=== PATIENT | male | born 1975 | race American Indian/Alaskan Native ===

== ENCOUNTER 2016-08-18 22:06 | Emergency (ER) | payer SELFPAY ==
[2016-08-18 22:55] LABS: Hematocrit 46.5 % (35.5-45.6); Hemoglobin 15.6 gm/dl (11.8-15.2); Mean Corpuscular HGB Conc 34 % (32-34); Mean Corpuscular Hemoglobin 29 pg (28-32); Mean Corpuscular Volume 88 fl (84-94); Platelet Count 235 K/mm3 (140-440); Red Cell Distribution Width 13.8 % (13.2-15.2); White Blood Count 11.2 K/mm3 (4.5-11.0)
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
[2016-08-18 23:18] LABS: Anion Gap 19 mmol/L; Blood Urea Nitrogen 12 mg/dL (9-20); Calcium 9.4 mg/dL (8.4-10.2); Carbon Dioxide 24 mmol/L (22-30); Chloride 99.9 mmol/L (98-107); Creatine Kinase 1278 units/L (55-170); Glucose 103 mg/dL (75-100); Potassium 3.9 mmol/L (3.6-5.0); Sodium 139 mmol/L (137-145)
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
[2016-08-19] MEDS ORDERED: PERCOCET 5/325 PO ONE (01:51)
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
[2016-08-19 03:11] VITALS: BP 125/74
== END 2016-08-19 03:09 | disposition home or self-care (01) ==
LOC: ED 22:06
DX: R07.81 Pleurodynia (principal); V29.9XXA Motorcycle rider (driver) (passenger) injured in unspecified traffic accident, initial encounter; Y93.89 Activity, other specified; Y99.8 Other external cause status; Y92.89 Other specified places as the place of occurrence of the external cause
CPT/HCPCS: 36415; 70450; 71250; 80048; 82550; 84484; 85027; 93005; 93010

== ENCOUNTER 2020-08-19 10:33 | Inpatient (IN) | payer OTHER, SELFPAY ==
--- NOTE | 2020-08-19 12:44 | Event Note ---
ED Screening Note Date of service: 08/19/20 Time: 12:44 ED Screening Note: 44-year-old -[place] male no past medical history presents to the emergency room for 1week history of sore throat with chest pain from swallowing. Patient states his nausea had vomited 1 time last night. Patient reports he is taking nothing for his discomfort. Denies any fever no chills. Patient reports he tested positive for Covid on August 11, 2020 from [facility]. Patient reports at that time he had chills and diarrhea. Patient reports he was seen at [facility] on 08/15/2020 for the same complaint. Patient reports he gave the medication he is unaware the name but did not work. This initial assessment/diagnostic orders/clinical plan/treatment(s) is/are subject to change based on patients health status, clinical progression and re- assessment by fellow clinical providers in the ED. Further treatment and workup at subsequent clinical providers discretion. Patient/guardian urged not to elope from the ED as their condition may be serious if not clinically assessed and managed. Initial orders include:
--- NOTE | 2020-08-19 13:15 | XRay Report ---
CHEST 2 VIEWS INDICATION: sob,cough and rales. COMPARISON: None. FINDINGS: Support devices: None. Heart: Within normal limits. Lungs/Pleura: Patchy opacity at the mid/lower zones. No significant pleural effusion. IMPRESSION: Bilateral mid/lower zone pneumonia. Signer Name: Luis F Vicente MD Signed: 08/19/2020 1:10 PM Workstation Name: [id number]
[2020-08-19 13:32] LABS: Hematocrit 48.8 % (35.5-45.6); Hemoglobin 16.6 gm/dl (11.8-15.2); Mean Corpuscular HGB Conc 34 % (32-34); Mean Corpuscular Volume 93 fl (84-94); Platelet Count 380 K/mm3 (140-440); Red Blood Count 5.28 M/mm3 (3.65-5.03); Red Cell Distribution Width 13.6 % (13.2-15.2)
[2020-08-19 13:50] LABS: Alanine Aminotransferase 24 units/L (7-56); Albumin 3.1 g/dL (3.9-5); BUN/Creatinine Ratio 17; Blood Urea Nitrogen 19 mg/dL (9-20); Calcium 8.8 mg/dL (8.4-10.2); Hemolysis Index 16
[2020-08-19 14:13] LABS: Band Neutrophils # (Manual) 0.1 K/mm3; Large Platelets Few; Platelet Estimate Consistent w Auto; RBC Morphology Normal; Total Cells Counted 100
[2020-08-19] MEDS ORDERED: AZITHROMYCIN/NS 500 MG/250 ML 500 MG/250 ML BAG IV ONE (19:48)
[2020-08-19] MEDS ORDERED: SODIUM CHLORIDE 0.9% 1000 ML 1,000 ML IV ONE (19:48)
[2020-08-19] MEDS ORDERED: KETOROLAC 30 MG/1 ML INJ IV ONE (19:49)
[2020-08-19] MEDS ORDERED: dexAMETHasone 20 MG/5 ML VIAL IV ONE (19:49)
[2020-08-19 20:24] LABS: Amphetamine Screen,Urine Negative; Benzodiazepines Screen,Urine Negative; Cannabinoid Screen,Urine Negative; Cocaine Screen,Urine Negative; Methadone Screen,Urine Negative; Opiate Screen,Urine Negative
--- NOTE | 2020-08-19 21:39 | Emergency Department Report ---
<SAMSON PANDA - Last Filed: 08/19/20 21:34> ED General Adult HPI - General Chief complaint: Dyspnea/Respdistress Stated complaint: CHEST/BACK PAIN/COVID POS Time Seen by Provider: 08/19/20 19:47 Source: patient Mode of arrival: Ambulatory Limitations: No Limitations - History of Present Illness Initial comments: 44-year-old -[place] male no past medical history presents to the emergency room for 1week history of sore throat with chest pain from swallowing. Patient states his nausea had vomited 1 time last night. Patient reports he is taking nothing for his discomfort. Denies any fever no chills. Patient reports he tested positive for Covid on August 11, 2020 from [facility]. Patient reports at that time he had chills and diarrhea. Patient reports he was seen at [facility] on 08/15/2020 for the same complaint. Patient reports he gave the medication he is unaware the name but did not work. Severity scale (0 -10): 4 - Related Data Previous Rx's Medication Instructions Recorded Last Taken Type Ciprofloxacin HCl [Cipro] 500 mg PO Q12H #28 tab 07/22/13 Unknown Rx metroNIDAZOLE [Flagyl] 500 mg PO Q8HR #42 tablet 07/22/13 Unknown Rx oxyCODONE /ACETAMINOPHEN [Percocet 1 tab PO Q6H PRN #15 tablet 08/19/16 Unknown Rx 5/325 mg] Albuterol Sulfate [Proventil Hfa] 6.7 gm IH QID PRN #1 hfa.aer.ad 08/19/20 Unknown Rx Azithromycin 500 mg PO QDAY #5 tablet 08/19/20 Unknown Rx Ibuprofen [Motrin 600 MG tab] 600 mg PO Q8H PRN #20 tablet 08/19/20 Unknown Rx Prednisone [predniSONE 5 mg (6-Day 5 mg PO .TAPER #1 tab.ds.pk 08/19/20 Unknown Rx Pack, 21 Tabs)] Allergies Allergy/AdvReac Type Severity Reaction Status Date / Time No Known Allergies Allergy Verified 07/19/13 05:43 ED Past Medical Hx - Past Medical History Hx Hypertension: No Hx Heart Attack/AMI: No Hx Congestive Heart Failure: No Hx Diabetes: No Hx Deep Vein Thrombosis: No Hx Pulmonary Embolism: No Hx Liver Disease: No Hx Renal Disease: No Hx Sickle Cell Disease: No Hx Arthritis: No Hx Seizures: No Hx Kidney Stones: No Hx Asthma: No Hx COPD: No Hx Tuberculosis: No Hx Dementia: No Hx HIV: No - Surgical History Hx Coronary Stent: No Hx Pacemaker: No Hx Internal Defibrillator: No Hx Cholecystectomy: No Hx Appendectomy: No Hx Breast Surgery: No - Social History Smoking Status: Unknown if ever smoked - Medications Home Medications: Home Medications Medication Instructions Recorded Confirmed Last Taken Type Ciprofloxacin HCl [Cipro] 500 mg PO Q12H #28 tab 07/22/13 Unknown Rx metroNIDAZOLE [Flagyl] 500 mg PO Q8HR #42 tablet 07/22/13 Unknown Rx oxyCODONE /ACETAMINOPHEN [Percocet 1 tab PO Q6H PRN #15 tablet 08/19/16 Unknown Rx 5/325 mg] Albuterol Sulfate [Proventil Hfa] 6.7 gm IH QID PRN #1 hfa.aer.ad 08/19/20 Unknown Rx Azithromycin 500 mg PO QDAY #5 tablet 08/19/20 Unknown Rx Ibuprofen [Motrin 600 MG tab] 600 mg PO Q8H PRN #20 tablet 08/19/20 Unknown Rx Prednisone [predniSONE 5 mg (6-Day 5 mg PO .TAPER #1 tab.ds.pk 08/19/20 Unknown Rx Pack, 21 Tabs)] ED Physical Exam - General Limitations: No Limitations ED Medical Decision Making - Lab Data Result diagrams: 08/19/20 12:52 08/19/20 12:52 - Radiology Data Radiology results: report reviewed [facility] [address] [place] [address] XRay Report Signed Patient: LINDA DIMAS MR#: Maria Guadalupe [id number] : 1975 Acct:[id number] Age/Sex: 44 / M ADM Date: 08/19/20 Loc: ED Attending Dr: Ordering Physician: ZACHARY POPE Date of Service: 08/19/20 Procedure(s): XR chest routine 2V Accession Number(s): [id number] cc: ZACHARY POPE Fluoro Time In Minutes: CHEST 2 VIEWS INDICATION: sob,cough and rales. COMPARISON: None. FINDINGS: Support devices: None. Heart: Within normal limits. Lungs/Pleura: Patchy opacity at the mid/lower zones. No significant pleural effusion. IMPRESSION: Bilateral mid/lower zone pneumonia. Signer Name: Luis F Vicente MD Signed: 08/19/2020 1:10 PM Workstation Name: [id number] Transcribed By: ALISSON Dictated By: Luis F Vicente MD Electronically Authenticated By: Luis F Vicente MD Signed Date/Time: 08/19/201309 DD/ 09 TD/TT: - Medical Decision Making 44-year-old -[place] male no past medical history presents to the emergency room for 1week history of sore throat with chest pain from swallowing. Patient states his nausea had vomited 1 time last night. Patient reports he is taking nothing for his discomfort. Denies any fever no chills. Patient reports he tested positive for Covid on August 11, [facility]. Patient reports at that time he had chills and diarrhea. Patient reports he was seen at [facility] on 08/15/2020 for the same complaint. Patient reports he gave the medication he is unaware the name but did not work. CBC CMP, IV, chest x-ray, azithromycin IV 500 mg, dexamethasone 10 mg IV and Toradol 15 mg IV. Patient be discharged with an inhaler, prednisone pack a azithromycin and to follow-up with a primary care provider. Did add a CTA for chest as patient is still complaining of chest pain. Chart has been signed over to Dr. Marco Desai. ED Disposition Clinical Impression: Pneumonia due to 2019 novel coronavirus, Shortness of breath with exposure to COVID-19 virus, Pulmonary embolism Disposition: -01 TO HOME OR SELFCARE Is pt being admited?: No Does the pt Need Aspirin: No Condition: Stable Instructions: Bacterial Pneumonia (ED) Prescriptions: Azithromycin 500 mg PO QDAY #5 tablet Ibuprofen [Motrin 600 MG tab] 600 mg PO Q8H PRN #20 tablet PRN Reason: Pain Prednisone [predniSONE 5 mg (6-Day Pack, 21 Tabs)] 5 mg PO .TAPER #1 tab.ds.pk Albuterol Sulfate [Proventil Hfa] 6.7 gm IH QID PRN #1 hfa.aer.ad PRN Reason: Shortness Of Breath <MARCO DESAI - Last Filed: 08/20/20 00:12> ED Review of Systems ROS: Stated complaint: CHEST/BACK PAIN/COVID POS Other details as noted in HPI ED Course Vital Signs 08/19/20 08/19/20 10:59 19:17 Temperature 96.5 F L 98.6 F Pulse Rate 113 H Respiratory 24 105 H Rate Blood Pressure 125/74 121/73 [Right] O2 Sat by Pulse 95 97 Oximetry ED Medical Decision Making - Lab Data Result diagrams: 08/19/20 12:52 08/19/20 12:52 Lab Results 08/19/20 08/19/20 08/19/20 Range/Units 12:52 12:52 12:56 WBC 10.7 (4.5-11.0) K/mm3 RBC 5.28 H (3.65-5.03) M/mm3 Hgb 16.6 H (11.8-15.2) gm/dl Hct 48.8 H (35.5-45.6) % MCV 93 (84-94) fl MCH 32 (28-32) pg MCHC 34 (32-34) % RDW 13.6 (13.2-15.2) % Plt Count 380 (140-440) K/mm3 Add Manual Diff Complete Total Counted 100 Seg Neuts % (Manual) 87.0 H (40.0-70.0) % Band Neutrophils % 1.0 % Lymphocytes % (Manual) 5.0 L (13.4-35.0) % Monocytes % (Manual) 7.0 (0.0-7.3) % Nucleated RBC % Not Reportable Seg Neutrophils # Man 9.3 H (1.8-7.7) K/mm3 Band Neutrophils # 0.1 K/mm3 Lymphocytes # (Manual) 0.5 L (1.2-5.4) K/mm3 Abs React Lymphs (Man) 0.0 K/mm3 Monocytes # (Manual) 0.7 (0.0-0.8) K/mm3 Eosinophils # (Manual) 0.0 (0.0-0.4) K/mm3 Basophils # (Manual) 0.0 (0.0-0.1) K/mm3 Metamyelocytes # 0.0 K/mm3 Myelocytes # 0.0 K/mm3 Promyelocytes # 0.0 K/mm3 Blast Cells # 0.0 K/mm3 WBC Morphology Not Reportable Hypersegmented Neuts Not Reportable Hyposegmented Neuts Not Reportable Hypogranular Neuts Not Reportable Smudge Cells Not Reportable Toxic Granulation Not Reportable Toxic Vacuolation Not Reportable Dohle Bodies Not Reportable Pelger-Huet Anomaly Not Reportable Kiera Rods Not Reportable Platelet Estimate Consistent w auto Clumped Platelets Not Reportable Plt Clumps, EDTA Not Reportable Large Platelets Few Giant Platelets Not Reportable Platelet Satelliting Not Reportable Plt Morphology Comment Not Reportable RBC Morphology Normal Dimorphic RBCs Not Reportable Polychromasia Not Reportable Hypochromasia Not Reportable Poikilocytosis Not Reportable Anisocytosis Not Reportable Microcytosis Not Reportable Macrocytosis Not Reportable Spherocytes Not Reportable Pappenheimer Bodies Not Reportable Sickle Cells Not Reportable Target Cells Not Reportable Tear Drop Cells Not Reportable Ovalocytes Not Reportable Helmet Cells Not Reportable [place] Bodies Not Reportable Donald Rings Not Reportable Meredith Cells Not Reportable Bite Cells Not Reportable Crenated Cell Not Reportable Elliptocytes Not Reportable Acanthocytes (Spur) Not Reportable Rouleaux Not Reportable Hemoglobin C Crystals Not Reportable Schistocytes Not Reportable Malaria parasites Not Reportable Kareem Bodies Not Reportable Hem Pathologist Commnt No Sodium 135 L (137-145) mmol/L Potassium 3.6 (3.6-5.0) mmol/L Chloride 96.8 L (98-107) mmol/L Carbon Dioxide 21 L (22-30) mmol/L Anion Gap 21 mmol/L BUN 19 (9-20) mg/dL Creatinine 1.1 (0.8-1.3) mg/dL Estimated GFR > 60 ml/min BUN/Creatinine Ratio 17 % Glucose 197 H (75-100) mg/dL Calcium 8.8 (8.4-10.2) mg/dL Total Bilirubin 0.60 (0.1-1.2) mg/dL AST 21 (5-40) units/L ALT 24 (7-56) units/L Alkaline Phosphatase 52 (35-129) units/L Troponin T < 0.010 (0.00-0.029) ng/mL Total Protein 7.7 (6.3-8.2) g/dL Albumin 3.1 L (3.9-5) g/dL Albumin/Globulin Ratio 0.7 % Lipase 52 (13-60) units/L Urine Opiates Screen Urine Methadone Screen Ur Barbiturates Screen Ur Phencyclidine Scrn Ur Amphetamines Screen U Benzodiazepines Scrn Urine Cocaine Screen U Marijuana (THC) Screen Drugs of Abuse Note 08/19/20 Range/Units Unknown WBC (4.5-11.0) K/mm3 RBC (3.65-5.03) M/mm3 Hgb (11.8-15.2) gm/dl Hct (35.5-45.6) % MCV (84-94) fl MCH (28-32) pg MCHC (32-34) % RDW (13.2-15.2) % Plt Count (140-440) K/mm3 Add Manual Diff Total Counted Seg Neuts % (Manual) (40.0-70.0) % Band Neutrophils % % Lymphocytes % (Manual) (13.4-35.0) % Monocytes % (Manual) (0.0-7.3) % Nucleated RBC % Seg Neutrophils # Man (1.8-7.7) K/mm3 Band Neutrophils # K/mm3 Lymphocytes # (Manual) (1.2-5.4) K/mm3 Abs React Lymphs (Man) K/mm3 Monocytes # (Manual) (0.0-0.8) K/mm3 Eosinophils # (Manual) (0.0-0.4) K/mm3 Basophils # (Manual) (0.0-0.1) K/mm3 Metamyelocytes # K/mm3 Myelocytes # K/mm3 Promyelocytes # K/mm3 Blast Cells # K/mm3 WBC Morphology Hypersegmented Neuts Hyposegmented Neuts Hypogranular Neuts Smudge Cells Toxic Granulation Toxic Vacuolation Dohle Bodies Pelger-Huet Anomaly Kiera Rods Platelet Estimate Clumped Platelets Plt Clumps, EDTA Large Platelets Giant Platelets Platelet Satelliting Plt Morphology Comment RBC Morphology Dimorphic RBCs Polychromasia Hypochromasia Poikilocytosis Anisocytosis Microcytosis Macrocytosis Spherocytes Pappenheimer Bodies Sickle Cells Target Cells Tear Drop Cells Ovalocytes Helmet Cells [place] Bodies Donald Rings Meredith Cells Bite Cells Crenated Cell Elliptocytes Acanthocytes (Spur) Rouleaux Hemoglobin C Crystals Schistocytes Malaria parasites Kareem Bodies Hem Pathologist Commnt Sodium (137-145) mmol/L Potassium (3.6-5.0) mmol/L Chloride (98-107) mmol/L Carbon Dioxide (22-30) mmol/L Anion Gap mmol/L BUN (9-20) mg/dL Creatinine (0.8-1.3) mg/dL Estimated GFR ml/min BUN/Creatinine Ratio % Glucose (75-100) mg/dL Calcium (8.4-10.2) mg/dL Total Bilirubin (0.1-1.2) mg/dL AST (5-40) units/L ALT (7-56) units/L Alkaline Phosphatase (35-129) units/L Troponin T (0.00-0.029) ng/mL Total Protein (6.3-8.2) g/dL Albumin (3.9-5) g/dL Albumin/Globulin Ratio % Lipase (13-60) units/L Urine Opiates Screen Negative Urine Methadone Screen Negative Ur Barbiturates Screen Negative Ur Phencyclidine Scrn Negative Ur Amphetamines Screen Negative U Benzodiazepines Scrn Negative Urine Cocaine Screen Negative U Marijuana (THC) Screen Negative Drugs of Abuse Note Disclamer - EKG Data -: EKG Interpreted by Sc - EKG Data 08/20/20 00:11 EKG shows sinus tachycardia with a rate of 106. [place] is normal intervals are normal. No ST segment elevations or depressions. Time of interpretation 1307 - Radiology Data Study Comments [facility] [address] [id number] Cat Scan Report Signed Patient: LINDA DIMAS MR#: [id number] : 1975 Acct:[id number] Age/Sex: 44 / M ADM Date: 08/19/20 Loc: ED Attending Dr: Ordering Physician: ZACHARY POPE Date of Service: 08/19/20 Procedure(s): CT angio chest Accession Number(s): [id number] cc: ZACHARY POPE CTA CHEST WITH CONTRAST INDICATION / CLINICAL INFORMATION: Chest pain Covid tachycardic. TECHNIQUE: Axial CT images were obtained through the chest after injection of IV contrast. 3 plane MIP and/or 3D reconstructions were produced. All CT scans at this location are performed using CT dose reduction for ALARA by means of automated exposure control. COMPARISON: None available. FINDINGS: PULMONARY ARTERIES: Moderate embolus left lower lobe. THORACIC AORTA: No significant abnormality. HEART: No significant abnormality. CORONARY ARTERY CALCIFICATION: None. MEDIASTINUM / ADRIEN: No significant abnormality. PLEURA: No pleural effusion. No pneumothorax. LUNGS: Patchy infiltrates greatest at the mid/lower zones peripherally. ADDITIONAL FINDINGS: None. UPPER ABDOMEN: No acute findings. SKELETAL STRUCTURES: No significant osseous abnormality. IMPRESSION: 1. Moderate left lower lobe pulmonary embolus. 2. Bilateral pneumonia typical of Covid 19 infection. CRITICAL RESULT: Time of Discovery: 10:22 PM Time of Communication: 10:29 PM Licensed Practitioner Receiving Report: Dr. Desai Read Back Performed: Yes. Signer Name: Luis F Vicente MD Signed: 08/19/2020 11:30 PM Workstation Name: [id number] - Medical Decision Making CT of the chest does confirm that the patient has bilateral infiltrates consistent with COVID-19. Incidental finding of a left lower lobe moderate size pulmonary embolus. Patient started on heparin bolus and drip. Blood cultures sent and inflammatory markers for COVID-19 was sent as well. Patient given Rocephin and azithromycin. Patient given 10 of Decadron and will be admitted to the hospitalist service. Critical Care Time: Yes (30) Critical care attestation.: If time is entered above; I have spent that time in minutes in the direct care of this critically ill patient, excluding procedure time. ED Disposition Is pt being admited?: Yes Does the pt Need Aspirin: No Time of Disposition: 00:12
[2020-08-19] MEDS ORDERED: FAMOTIDINE 20 MG/2 ML INJ IV ONE (21:48)
[2020-08-19] MEDS ORDERED: HYOSCYAMINE SUBL 0.125 MG TAB SL ONE (21:48)
--- NOTE | 2020-08-19 23:35 | Cat Scan Report ---
CTA CHEST WITH CONTRAST INDICATION / CLINICAL INFORMATION: Chest pain Covid tachycardic. TECHNIQUE: Axial CT images were obtained through the chest after injection of IV contrast. 3 plane NC P and/or 3D reconstructions were produced. All CT scans at this location are performed using CT dose reduction for ALARA by means of automated exposure control. COMPARISON: None available. FINDINGS: PULMONARY ARTERIES: Moderate embolus left lower lobe. THORACIC AORTA: No significant abnormality. HEART: No significant abnormality. CORONARY ARTERY CALCIFICATION: None. MEDIASTINUM / ADRIEN: No significant abnormality. PLEURA: No pleural effusion. No pneumothorax. LUNGS: Patchy infiltrates greatest at the mid/lower zones peripherally. ADDITIONAL FINDINGS: None. UPPER ABDOMEN: No acute findings. SKELETAL STRUCTURES: No significant osseous abnormality. IMPRESSION: 1. Moderate left lower lobe pulmonary embolus. 2. Bilateral pneumonia typical of Covid 19 infection. CRITICAL RESULT: Time of Discovery: 10:22 PM Time of Communication: 10:29 PM Licensed Practitioner Receiving Report: Dr. Desai Read Back Performed: Yes. Signer Name: Luis F Vicente MD Signed: 08/19/2020 11:30 PM Workstation Name: [id number]
[2020-08-19] MEDS ORDERED: HEPARIN 10,000 UNITS/10 ML VIAL IV PRN (23:36)
[2020-08-19] MEDS ORDERED: cefTRIAXone/NS 2 GM/100 ML 2 GM/100 ML BAG IV ONE (23:36)
[2020-08-19] MEDS ORDERED: HEPARIN 10,000 UNITS/10 ML VIAL IV ONE (23:36)
[2020-08-20] MEDS ORDERED: ACETAMINOPHEN 325 MG TAB PO PRN (00:27)
[2020-08-20] MEDS ORDERED: MAGNESIUM HYDROXIDE (MOM) ORAL LIQD UDC PO PRN (00:27)
[2020-08-20] MEDS ORDERED: ONDANSETRON 4 MG/2 ML INJ IV PRN (00:27)
--- NOTE | 2020-08-20 00:38 | History and Physical Report ---
History of Present Illness Date of examination: 08/20/20 Date of admission: 08/20/2020 Chief complaint: Sorethroat Chest Pain History of present illness: 44-year-old -Stateless male presents to the emergency room today complaining of chest pain and sore throat. Patient has also had nausea and vomiting overnight. He indicates that he tested positive for COVID-19 on August 11, 2020 during which she had occasional chills and diarrhea. Chills and diarrhea since resolved. He was seen at [facility] on August 15, 2020 with same complaints and given some medications. He has not noticed any significant improvement. He has been having progressive shortness of breath. Work-up in the emergency room today reveals bilateral infiltrate on chest x-ray. CT angiogram of the chest reveals moderate left lower lobe pulmonary embolus and bilateral pneumonia typical of COVID-19 infection. Patient has been started on empiric IV antibiotics and also placed on heparin drip. Patient currently admitted with COVID-19 pneumonia and pulmonary embolism. Past History Past Medical History: No medical history Past Surgical History: No surgical history Social history: no significant social history Family history: no significant family history Medications and Allergies Allergies Allergy/AdvReac Type Severity Reaction Status Date / Time No Known Allergies Allergy Verified 07/19/13 05:43 Home Medications Medication Instructions Recorded Confirmed Last Taken Type Ciprofloxacin HCl [Cipro] 500 mg PO Q12H #28 tab 07/22/13 Unknown Rx metroNIDAZOLE [Flagyl] 500 mg PO Q8HR #42 tablet 07/22/13 Unknown Rx oxyCODONE /ACETAMINOPHEN [Percocet 1 tab PO Q6H PRN #15 tablet 08/19/16 Unknown Rx 5/325 mg] Albuterol Sulfate [Proventil Hfa] 6.7 gm IH QID PRN #1 hfa.aer.ad 08/19/20 Unknown Rx Azithromycin 500 mg PO QDAY #5 tablet 08/19/20 Unknown Rx Ibuprofen [Motrin 600 MG tab] 600 mg PO Q8H PRN #20 tablet 08/19/20 Unknown Rx Prednisone [predniSONE 5 mg (6-Day 5 mg PO .TAPER #1 tab.ds.pk 08/19/20 Unknown Rx Pack, 21 Tabs)] Active Meds: Active Medications Acetaminophen (Acetaminophen 325 Mg Tab) 650 mg PO Q4H PRN PRN Reason: Pain MILD(1-3)/Fever >100.5/MAGANA Enoxaparin Sodium (Enoxaparin 40 Mg/0.4 Ml Inj) 40 mg SUB-Q QDAY@2200 GLENN; Protocol Heparin Sodium (Porcine) (Heparin 10,000 Units/10 Ml Vial) 3,300 unit 40 unit/kg (3300 unit) IV Q6H PRN PRN Reason: Anti-Xa Assay < 0.1 units/ml Ceftriaxone Sodium (Rocephin/Ns 2 Gm/100 Ml) 2 gm in 100 mls @ 200 mls/hr IV Q24H GLENN; Protocol Azithromycin (Zithromax/Ns) 500 mg in 250 mls @ 250 mls/hr IV Q24H GLENN; Protocol Magnesium Hydroxide (Magnesium Hydroxide (Mom) Oral Liqd Udc) 30 ml PO Q4H PRN PRN Reason: Constipation Morphine Sulfate (Morphine 2 Mg/1 Ml Inj) 2 mg IV Q4H PRN PRN Reason: Pain, Moderate (4-6) Ondansetron HCl (Ondansetron 4 Mg/2 Ml Inj) 4 mg IV Q8H PRN PRN Reason: Nausea And Vomiting Sodium Chloride (Sodium Chloride 0.9% 10 Ml Flush Syringe) 10 ml IV BID GLENN Sodium Chloride (Sodium Chloride 0.9% 10 Ml Flush Syringe) 10 ml IV PRN PRN PRN Reason: LINE FLUSH Review of Systems Constitutional: no fever, no chills Ears, nose, mouth and throat: sore throat, no nasal congestion Cardiovascular: chest pain, no palpitations Respiratory: shortness of breath, no cough Gastrointestinal: nausea, vomiting, diarrhea, no abdominal pain Genitourinary Male: no dysuria, no hematuria, no flank pain, no nocturia Musculoskeletal: no neck pain, no low back pain Integumentary: no rash, no pruritis Neurological: no headaches, no confusion Psychiatric: no anxiety, no depression Endocrine: no polyphagia, no polydipsia, no polyuria, no nocturia Exam - Constitutional Vitals: Temp Pulse Resp BP Pulse Ox 98.6 F 113 H 105 H 121/73 97 08/19/20 19:17 08/19/20 10:59 08/19/20 19:17 08/19/20 19:17 08/19/20 19:17 General appearance: Present: no acute distress, well-nourished - EENT Eyes: Present: PERRL, EOM intact. Absent: scleral icterus ENT: hearing intact, clear oral mucosa, dentition normal - Neck Neck: Present: supple, normal ROM - Respiratory Respiratory effort: normal Respiratory: bilateral: diminished - Cardiovascular Rhythm: regular Heart Sounds: Present: S1 & S2, gallop, rub, click. Absent: systolic murmur, diastolic murmur - Extremities Extremities: no ischemia, pulses intact, pulses symmetrical, No edema, normal temperature, normal color, Full ROM Peripheral Pulses: within normal limits - Abdominal General gastrointestinal: Present: soft, non-tender, non-distended, normal bowel sounds. Absent: mass - Integumentary Integumentary: Present: clear, warm, dry. Absent: rash - Musculoskeletal Musculoskeletal: strength equal bilaterally - Psychiatric Psychiatric: appropriate mood/affect, intact judgment & insight, memory intact, cooperative - Neurologic Neurologic: CNII-XII intact, no focal deficits, moves all extremities HEART Score - HEART Score Troponin: Troponin T < 0.010 ng/mL (0.00-0.029) 08/19/20 12:56 Results - Labs CBC & Chem 7: 08/19/20 12:52 08/20/20 00:10 Labs: Abnormal lab results 08/19/20 08/19/20 Range/Units 12:52 12:52 RBC 5.28 H (3.65-5.03) M/mm3 Hgb 16.6 H (11.8-15.2) gm/dl Hct 48.8 H (35.5-45.6) % Seg Neuts % (Manual) 87.0 H (40.0-70.0) % Lymphocytes % (Manual) 5.0 L (13.4-35.0) % Seg Neutrophils # Man 9.3 H (1.8-7.7) K/mm3 Lymphocytes # (Manual) 0.5 L (1.2-5.4) K/mm3 Sodium 135 L (137-145) mmol/L Chloride 96.8 L (98-107) mmol/L Carbon Dioxide 21 L (22-30) mmol/L Glucose 197 H (75-100) mg/dL Albumin 3.1 L (3.9-5) g/dL Assessment and Plan - Patient Problems (1) Pneumonia due to 2019 novel coronavirus Current Visit: Yes Status: Acute Plan to address problem: Patient placed on isolation precautions. He has been started on empiric IV antibiotics and steroid. We will place consult to infectious disease for evaluation. (2) Pulmonary embolism Current Visit: Yes Status: Acute Plan to address problem: Patient started on heparin drip. (3) DVT prophylaxis Current Visit: No Status: Acute Plan to address problem: Patient currently on anticoagulation. (4) Full code status Current Visit: Yes Status: Acute Plan to address problem: Patient is full code.
[2020-08-20] MEDS ORDERED: cefTRIAXone/NS 2 GM/100 ML 2 GM/100 ML BAG IV SCH ×2 (01:00→22:00)
[2020-08-20] MEDS ORDERED: AZITHROMYCIN/NS 500 MG/250 ML 500 MG/250 ML BAG IV SCH ×2 (01:00→21:00)
[2020-08-20 01:03] LABS: INR 1.07 (0.87-1.13); Partial Thromboplastin Time 25.5 Sec. (24.2-36.6)
[2020-08-20] MEDS: HEPARIN/ 0.45% NACL DRIP 25,000 UNIT/500 ML BAG IV SCH ×3 (03:00→21:13)
[2020-08-20] MEDS: MORPHINE 2 MG/1 ML INJ IV PRN ×5 (03:00→22:13)
[2020-08-20 03:20] LABS: C-Reactive Protein 3.9 mg/dL (0.00-1.30)
[2020-08-20] MEDS ORDERED: MORPHINE 2 MG/1 ML INJ IV ONE (04:15)
[2020-08-20] MEDS ORDERED: HYDROmorphone 1 MG/1 ML INJ IV ONE (04:30)
[2020-08-20] MEDS ORDERED: dexAMETHasone 4 MG/ML VIAL IV SCH (10:00)
--- NOTE | 2020-08-20 10:17 | Event Note ---
Date: 08/20/20 Patient was seen and evaluated this morning, patient was complaining heartburn. I put him on Pepcid. Patient is on heparin drip for left lower extremity PE. He had Covid test at the end of last month. Repeat Covid test is pending. ID consulted. Patient was given Decadron.
[2020-08-20] MEDS: FAMOTIDINE 20 MG TAB PO SCH ×2 (11:06→21:10)
--- NOTE | 2020-08-20 12:14 | Consultation ---
History of Present Illness - Reason for Consult Consult date: 08/20/20 COVID-19 Requesting physician: JULIETA SR - History of Present Illness The patient is a 44-year-old male who had tested positive for COVID-19 as an outpatient on 08/11/2020 was admitted to the hospital with chest pain and shortness of breath. CTA revealed a pulmonary embolism and bilateral pneumonia. He was started on anticoagulation. Infectious diseases was consulted for additional evaluation. He is afebrile and is currently on room air at the time of my evaluation. Review of Systems: As per HPI Past History Past Medical History: No medical history Past Surgical History: No surgical history Social history: no significant social history Family history: no significant family history Medications and Allergies Allergies Allergy/AdvReac Type Severity Reaction Status Date / Time No Known Allergies Allergy Verified 07/19/13 05:43 Home Medications Medication Instructions Recorded Confirmed Last Taken Type Ciprofloxacin HCl [Cipro] 500 mg PO Q12H #28 tab 07/22/13 Unknown Rx metroNIDAZOLE [Flagyl] 500 mg PO Q8HR #42 tablet 07/22/13 Unknown Rx oxyCODONE /ACETAMINOPHEN [Percocet 1 tab PO Q6H PRN #15 tablet 08/19/16 Unknown Rx 5/325 mg] Albuterol Sulfate [Proventil Hfa] 6.7 gm IH QID PRN #1 hfa.aer.ad 08/19/20 Unknown Rx Azithromycin 500 mg PO QDAY #5 tablet 08/19/20 Unknown Rx Ibuprofen [Motrin 600 MG tab] 600 mg PO Q8H PRN #20 tablet 08/19/20 Unknown Rx Prednisone [predniSONE 5 mg (6-Day 5 mg PO .TAPER #1 tab.ds.pk 08/19/20 Unknown Rx Pack, 21 Tabs)] Active Meds: Active Medications Acetaminophen (Acetaminophen 325 Mg Tab) 650 mg PO Q4H PRN PRN Reason: Pain MILD(1-3)/Fever >100.5/MAGANA Dexamethasone (Dexamethasone 4 Mg/Ml Vial) 6 mg IV Q24HR [facility] Last Admin: 08/20/20 09:21 Dose: 6 mg Documented by: Famotidine (Famotidine 20 Mg Tab) 20 mg PO BID GLENN Last Admin: 08/20/20 11:06 Dose: 20 mg Documented by: Heparin Sodium (Porcine) (Heparin 10,000 Units/10 Ml Vial) 3,300 unit 40 unit/kg (3300 unit) IV Q6H PRN PRN Reason: Anti-Xa Assay < 0.1 units/ml Heparin Sodium/Sodium Chloride (Heparin/ 0.45% Nacl-25,000 Unit/500 Ml) 25,000 unit in 500 mls @ 24 mls/hr IV TITR GLENN; Protocol Last Titration: 08/20/20 11:34 Dose: 1,200 units/hr, 24 mls/hr Documented by: Magnesium Hydroxide (Magnesium Hydroxide (Mom) Oral Liqd Udc) 30 ml PO Q4H PRN PRN Reason: Constipation Morphine Sulfate (Morphine 2 Mg/1 Ml Inj) 2 mg IV Q4H PRN PRN Reason: Pain, Moderate (4-6) Last Admin: 08/20/20 08:21 Dose: 2 mg Documented by: Ondansetron HCl (Ondansetron 4 Mg/2 Ml Inj) 4 mg IV Q8H PRN PRN Reason: Nausea And Vomiting Sodium Chloride (Sodium Chloride 0.9% 10 Ml Flush Syringe) 10 ml IV BID GLENN Last Admin: 08/20/20 09:21 Dose: 10 ml Documented by: Sodium Chloride (Sodium Chloride 0.9% 10 Ml Flush Syringe) 10 ml IV PRN PRN PRN Reason: LINE FLUSH Last Admin: 08/20/20 03:01 Dose: 10 ml Documented by: Physical Examination - Physical Exam Narrative exam: Physical Exam: Constitutional: Alert, cooperative. No acute distress Head, Ears, Nose: Normocephalic, atraumatic. External ears, nose normal Eyes: Conjunctivae/corneas clear. No icterus. No ptosis. Neck: Supple, no meningeal signs Cardiovascular: S1, S2 normal. Respiratory: Good air entry, clear to auscultation bilaterally GI: Soft, non-tender; bowel sounds normal. No peritoneal signs Musculoskeletal: No pedal edema, no cyanosis. Skin: No rash or abscess Hem/Lymphatic: No palpable cervical or supraclavicular nodes. No lymphangitis Psych: Mood ok. Affect normal Neurological: Awake, alert, oriented. No gross abnormality - Constitutional Vitals: Vital Signs Temp Pulse Resp BP Pulse Ox 98.7 F 57 L 18 135/77 97 08/20/20 04:56 08/20/20 04:56 08/20/20 04:56 08/20/20 04:56 08/20/20 04:56 Temperature -Last 24 Hours Temperature 98.7 F Temperature 98.5 F Temperature 98.5 F Temperature 97.9 F Temperature 98.6 F Results - Labs CBC & Chem 7: 08/19/20 12:52 08/20/20 00:10 Labs: Abnormal lab results 08/19/20 08/19/20 08/20/20 Range/Units 12:52 12:52 00:10 RBC 5.28 H (3.65-5.03) M/mm3 Hgb 16.6 H (11.8-15.2) gm/dl Hct 48.8 H (35.5-45.6) % Seg Neuts % (Manual) 87.0 H (40.0-70.0) % Lymphocytes % (Manual) 5.0 L (13.4-35.0) % Seg Neutrophils # Man 9.3 H (1.8-7.7) K/mm3 Lymphocytes # (Manual) 0.5 L (1.2-5.4) K/mm3 D-Dimer 1186.85 H (0-234) ng/mlDDU Sodium 135 L (137-145) mmol/L Chloride 96.8 L (98-107) mmol/L Carbon Dioxide 21 L (22-30) mmol/L Glucose 197 H (75-100) mg/dL Ferritin (30.0-300.0) ng/mL Lactate Dehydrogenase (91-180) units/L C-Reactive Protein (0.00-1.30) mg/dL Albumin 3.1 L (3.9-5) g/dL 08/20/20 08/20/20 Range/Units 00:10 00:10 RBC (3.65-5.03) M/mm3 Hgb (11.8-15.2) gm/dl Hct (35.5-45.6) % Seg Neuts % (Manual) (40.0-70.0) % Lymphocytes % (Manual) (13.4-35.0) % Seg Neutrophils # Man (1.8-7.7) K/mm3 Lymphocytes # (Manual) (1.2-5.4) K/mm3 D-Dimer (0-234) ng/mlDDU Sodium (137-145) mmol/L Chloride (98-107) mmol/L Carbon Dioxide (22-30) mmol/L Glucose 183 H (75-100) mg/dL Ferritin 1656.0 H (30.0-300.0) ng/mL Lactate Dehydrogenase 345 H (91-180) units/L C-Reactive Protein 3.90 H (0.00-1.30) mg/dL Albumin (3.9-5) g/dL - Imaging and Cardiology Chest x-ray: report reviewed CT scan - chest: report reviewed (b/l patchy infiltrates) Assessment and Plan Cultures: SARS CoV2 PCR: Pending but positive as outpatient 08/20/2020 blood culture: In process A/P: 44-year-old male with COVID-19: #Bilateral pneumonia: Secondary to COVID-19. CRP 3.9, procalcitonin 0.06, ferritin 1656. #Acute pulmonary embolism: Likely secondary to above Recs: -From COVID-19 standpoint, patient is on room air, no indication for remdesivir or steroids -Procalcitonin is low, antibiotics discontinued -Continue anticoagulation per primary team for pulmonary embolism Ernie Latif MD, FACP [facility] O: [phone] F: [phone]
[2020-08-20] MEDS ORDERED: ENOXAPARIN 40 MG/0.4 ML INJ SUB-Q SCH (22:00)
[2020-08-21 07:58] LABS: Basophils # (Auto) 0.1 K/mm3 (0.0-0.1); Basophils % (Auto) 0.9 % (0.0-1.8); Eosinophils % (Auto) 0.2 % (0.0-4.3); Hematocrit 42.9 % (35.5-45.6); Hemoglobin 14.3 gm/dl (11.8-15.2); Lymphocytes # (Auto) 2.8 K/mm3 (1.2-5.4); Lymphocytes % (Auto) 17.7 % (13.4-35.0); Mean Corpuscular HGB Conc 33 % (32-34); Mean Corpuscular Volume 92 fl (84-94); Monocytes # (Auto) 1.4 K/mm3 (0.0-0.8); Monocytes % (Auto) 8.8 % (0.0-7.3); Platelet Count 380 K/mm3 (140-440); Red Blood Count 4.69 M/mm3 (3.65-5.03); Red Cell Distribution Width 13.7 % (13.2-15.2)
[2020-08-21 08:05] LABS: INR 0.96 (0.87-1.13)
[2020-08-21 08:22] LABS: BUN/Creatinine Ratio 18; Blood Urea Nitrogen 16 mg/dL (9-20); Calcium 8.5 mg/dL (8.4-10.2); Hemolysis Index 1
[2020-08-21] MEDS ORDERED: WARFARIN NO DOSE TODAY PO ONE (08:47)
--- NOTE | 2020-08-21 08:51 | Progress Note ---
Assessment and Plan Assessment and plan: Left lower lobe pulmonary embolism -Patient is on heparin -Patient is uninsured and I added a medicine pharmacy to dose -Monitor INR COVID-19 infection -Patient was evaluated by ID and recommend no remdesivir or Decadron because patient does not need oxygen. Disposition; patient can be discharged once INR is therapeutic or DAOC is arranged as an O/P treatment by CM. History Interval history: Patient was seen and evaluated this morning Patient is on room air Hospitalist Physical - Physical exam Narrative exam: Not in cardiopulmonary distress. The patient appeared well nourished and normally developed. Vital signs as documented. Head exam is unremarkable. No scleral icterus . Neck is without jugular venous distension, thyromegaly, or carotid bruits. Lungs are clear to auscultation. Cardiac exam reveals regular rate and Rhythm. Abdominal exam reveals normal bowel sounds, nontender, no organomegaly. Extremities are nonedematous and both femoral and pedal pulses are normal. [employer]ING PROFESSOR: Alert and oriented 3. No focal weakness. - Constitutional Vitals: Temp Pulse Resp BP Pulse Ox 98.9 F 50 L 18 124/78 98 08/21/20 05:19 08/21/20 05:19 08/21/20 05:19 08/21/20 05:19 08/21/20 05:19 General appearance: Present: no acute distress, well-nourished HEART Score - HEART Score Troponin: Troponin T < 0.010 ng/mL (0.00-0.029) 08/19/20 12:56 Results - Labs CBC & Chem 7: 08/21/20 06:53 08/21/20 06:53 Labs: Laboratory Last Values WBC 15.7 K/mm3 (4.5-11.0) H 08/21/20 06:53 RBC 4.69 M/mm3 (3.65-5.03) 08/21/20 06:53 Hgb 14.3 gm/dl (11.8-15.2) 08/21/20 06:53 Hct 42.9 % (35.5-45.6) 08/21/20 06:53 MCV 92 fl (84-94) 08/21/20 06:53 MCH 30 pg (28-32) 08/21/20 06:53 MCHC 33 % (32-34) 08/21/20 06:53 RDW 13.7 % (13.2-15.2) 08/21/20 06:53 Plt Count 380 K/mm3 (140-440) 08/21/20 06:53 Lymph % (Auto) 17.7 % (13.4-35.0) 08/21/20 06:53 [place] % (Auto) 8.8 % (0.0-7.3) H 08/21/20 06:53 Eos % (Auto) 0.2 % (0.0-4.3) 08/21/20 06:53 Baso % (Auto) 0.9 % (0.0-1.8) 08/21/20 06:53 Lymph # (Auto) 2.8 K/mm3 (1.2-5.4) 08/21/20 06:53 [place] # (Auto) 1.4 K/mm3 (0.0-0.8) H 08/21/20 06:53 Eos # (Auto) 0.0 K/mm3 (0.0-0.4) 08/21/20 06:53 Baso # (Auto) 0.1 K/mm3 (0.0-0.1) 08/21/20 06:53 Add Manual Diff Complete 08/19/20 12:52 Total Counted 100 08/19/20 12:52 Seg Neutrophils % 72.4 % (40.0-70.0) H 08/21/20 06:53 Seg Neuts % (Manual) 87.0 % (40.0-70.0) H 08/19/20 12:52 Band Neutrophils % 1.0 % 08/19/20 12:52 Lymphocytes % (Manual) 5.0 % (13.4-35.0) L 08/19/20 12:52 Monocytes % (Manual) 7.0 % (0.0-7.3) 08/19/20 12:52 Nucleated RBC % Not Reportable 08/19/20 12:52 Seg Neutrophils # 11.4 K/mm3 (1.8-7.7) H 08/21/20 06:53 Seg Neutrophils # Man 9.3 K/mm3 (1.8-7.7) H 08/19/20 12:52 Band Neutrophils # 0.1 K/mm3 08/19/20 12:52 Lymphocytes # (Manual) 0.5 K/mm3 (1.2-5.4) L 08/19/20 12:52 Abs React Lymphs (Man) 0.0 K/mm3 08/19/20 12:52 Monocytes # (Manual) 0.7 K/mm3 (0.0-0.8) 08/19/20 12:52 Eosinophils # (Manual) 0.0 K/mm3 (0.0-0.4) 08/19/20 12:52 Basophils # (Manual) 0.0 K/mm3 (0.0-0.1) 08/19/20 12:52 Metamyelocytes # 0.0 K/mm3 08/19/20 12:52 Myelocytes # 0.0 K/mm3 08/19/20 12:52 Promyelocytes # 0.0 K/mm3 08/19/20 12:52 Blast Cells # 0.0 K/mm3 08/19/20 12:52 WBC Morphology Not Reportable 08/19/20 12:52 Hypersegmented Neuts Not Reportable 08/19/20 12:52 Hyposegmented Neuts Not Reportable 08/19/20 12:52 Hypogranular Neuts Not Reportable 08/19/20 12:52 Smudge Cells Not Reportable 08/19/20 12:52 Toxic Granulation Not Reportable 08/19/20 12:52 Toxic Vacuolation Not Reportable 08/19/20 12:52 Dohle Bodies Not Reportable 08/19/20 12:52 Pelger-Huet Anomaly Not Reportable 08/19/20 12:52 Kiera Rods Not Reportable 08/19/20 12:52 Platelet Estimate Consistent w auto 08/19/20 12:52 Clumped Platelets Not Reportable 08/19/20 12:52 Plt Clumps, EDTA Not Reportable 08/19/20 12:52 Large Platelets Few 08/19/20 12:52 Giant Platelets Not Reportable 08/19/20 12:52 Platelet Satelliting Not Reportable 08/19/20 12:52 Plt Morphology Comment Not Reportable 08/19/20 12:52 RBC Morphology Normal 08/19/20 12:52 Dimorphic RBCs Not Reportable 08/19/20 12:52 Polychromasia Not Reportable 08/19/20 12:52 Hypochromasia Not Reportable 08/19/20 12:52 Poikilocytosis Not Reportable 08/19/20 12:52 Anisocytosis Not Reportable 08/19/20 12:52 Microcytosis Not Reportable 08/19/20 12:52 Macrocytosis Not Reportable 08/19/20 12:52 Spherocytes Not Reportable 08/19/20 12:52 Pappenheimer Bodies Not Reportable 08/19/20 12:52 Sickle Cells Not Reportable 08/19/20 12:52 Target Cells Not Reportable 08/19/20 12:52 Tear Drop Cells Not Reportable 08/19/20 12:52 Ovalocytes Not Reportable 08/19/20 12:52 Helmet Cells Not Reportable 08/19/20 12:52 [place] Bodies Not Reportable 08/19/20 12:52 Leon Rings Not Reportable 08/19/20 12:52 [place] Cells Not Reportable 08/19/20 12:52 Bite Cells Not Reportable 08/19/20 12:52 Crenated Cell Not Reportable 08/19/20 12:52 Elliptocytes Not Reportable 08/19/20 12:52 Acanthocytes (Spur) Not Reportable 08/19/20 12:52 Rouleaux Not Reportable 08/19/20 12:52 Hemoglobin C Crystals Not Reportable 08/19/20 12:52 Schistocytes Not Reportable 08/19/20 12:52 Malaria parasites Not Reportable 08/19/20 12:52 Kareem Bodies Not Reportable 08/19/20 12:52 Hem Pathologist Commnt No 08/19/20 12:52 PT 12.6 Sec. (12.2-14.9) 08/21/20 06:53 INR 0.96 (0.87-1.13) 08/21/20 06:53 APTT 25.5 Sec. (24.2-36.6) 08/20/20 00:10 D-Dimer 1186.85 ng/mlDDU (0-234) H 08/20/20 00:10 Heparin Anti-Xa Level 0.44 U.I./ml (0.3-0.7) 08/20/20 09:01 Sodium 136 mmol/L (137-145) L 08/21/20 06:53 Potassium 3.9 mmol/L (3.6-5.0) 08/21/20 06:53 Chloride 101.7 mmol/L (98-107) 08/21/20 06:53 Carbon Dioxide 25 mmol/L (22-30) 08/21/20 06:53 Anion Gap 13 mmol/L 08/21/20 06:53 BUN 16 mg/dL (9-20) 08/21/20 06:53 Creatinine 0.9 mg/dL (0.8-1.3) 08/21/20 06:53 Estimated GFR > 60 ml/min 08/21/20 06:53 BUN/Creatinine Ratio 18 % 08/21/20 06:53 Glucose 93 mg/dL (75-100) 08/21/20 06:53 Calcium 8.5 mg/dL (8.4-10.2) 08/21/20 06:53 Ferritin 1656.0 ng/mL (30.0-300.0) H 08/20/20 00:10 Total Bilirubin 0.60 mg/dL (0.1-1.2) 08/19/20 12:52 AST 21 units/L (5-40) 08/19/20 12:52 ALT 24 units/L (7-56) 08/19/20 12:52 Alkaline Phosphatase 52 units/L (35-129) 08/19/20 12:52 Lactate Dehydrogenase 345 units/L (91-180) H 08/20/20 00:10 Troponin T < 0.010 ng/mL (0.00-0.029) 08/19/20 12:56 C-Reactive Protein 3.90 mg/dL (0.00-1.30) H 08/20/20 00:10 Total Protein 7.7 g/dL (6.3-8.2) 08/19/20 12:52 Albumin 3.1 g/dL (3.9-5) L 08/19/20 12:52 Albumin/Globulin Ratio 0.7 % 08/19/20 12:52 Lipase 52 units/L (13-60) 08/19/20 12:52 Procalcitonin 0.06 ng/mL (<0.15) 08/20/20 00:10 Urine Opiates Screen Negative 08/19/20 Unknown Urine Methadone Screen Negative 08/19/20 Unknown Ur Barbiturates Screen Negative 08/19/20 Unknown Ur Phencyclidine Scrn Negative 08/19/20 Unknown Ur Amphetamines Screen Negative 08/19/20 Unknown U Benzodiazepines Scrn Negative 08/19/20 Unknown Urine Cocaine Screen Negative 08/19/20 Unknown U Marijuana (THC) Screen Negative 08/19/20 Unknown Drugs of Abuse Note Disclamer 08/19/20 Unknown Coronavirus (PCR) Positive (Negative) A 08/20/20 Unknown Microbiology: Microbiology 08/20/20 00:40 Peripheral/Venous Blood Culture - Preliminary NO GROWTH AFTER 24 HOURS 08/20/20 00:10 Peripheral/Venous Blood Culture - Preliminary NO GROWTH AFTER 24 HOURS Nicolas/IV: Voiding Method Toilet Active Medications - Current Medications Current Medications: Generic Name Dose Route Start Last Admin Trade Name Freq PRN Reason Stop Dose Admin Acetaminophen 650 mg 08/20/20 00:27 Acetaminophen 325 Mg Tab PO Q4H PRN Pain MILD(1-3)/Fever >100.5/MAGANA Famotidine 20 mg 08/20/20 10:00 08/20/20 21:10 Famotidine 20 Mg Tab PO 20 mg BID GLENN Administration Heparin Sodium (Porcine) 3,300 unit 08/19/20 23:36 Heparin 10,000 Units/10 Ml Vial 40 unit/kg (3300 unit) IV Q6H PRN Anti-Xa Assay < 0.1 units/ml Heparin Sodium/Sodium Chloride 25,000 unit in 500 mls @ 24 mls/hr 08/20/20 01:00 08/20/20 21:13 Heparin/ 0.45% Nacl-25,000 Unit/500 Ml IV 1,200 units/hr TITR GLENN 24 mls/hr Administration Protocol 1,200 UNITS/HR Magnesium Hydroxide 30 ml 08/20/20 00:27 Magnesium Hydroxide (Mom) Oral Liqd Udc PO Q4H PRN Constipation Morphine Sulfate 2 mg 08/20/20 00:27 08/20/20 22:13 Morphine 2 Mg/1 Ml Inj IV 2 mg Q4H PRN Administration Pain, Moderate (4-6) Ondansetron HCl 4 mg 08/20/20 00:27 Ondansetron 4 Mg/2 Ml Inj IV Q8H PRN Nausea And Vomiting Sodium Chloride 10 ml 08/20/20 10:00 08/20/20 21:10 Sodium Chloride 0.9% 10 Ml Flush Syringe IV 10 ml BID GLENN Administration Sodium Chloride 10 ml 08/20/20 00:27 08/20/20 03:01 Sodium Chloride 0.9% 10 Ml Flush Syringe IV 10 ml PRN PRN Administration LINE FLUSH Nutrition/Malnutrition Assess - Dietary Evaluation Nutrition/Malnutrition Findings: Nutrition Notes Start: 08/20/20 11:10 Freq: Status: Active Protocol: Document 08/20/20 11:10 ILIR (Rec: 08/20/20 11:20 [id number]) Nutrition Notes Need for Assessment generated from: undercover cop,MST Initial or Follow up Assessment Other Pertinent Diagnosis pneu, COVID PUI, pulmonary embolism Current Diet Regular Labs/Tests BG 183 Pertinent Medications Decadron Height 5 ft 6 in Weight 81.5 kg Usual Body Weight 84.9 kg [place] Body Weight (kg) 64.54 BMI 29.0 Weight change and time frame 4% wt loss in 1 week Subjective/Other Information RN screen for MST. Pt reports not eating much for 1 week. Pt does not want ONS. Pt would like bland foods. Pt ate <25% of breakfast. Burn Absent Trauma Absent GI Symptoms Nausea Current % PO Negligible Minimum of two criteria Yes Energy Intake (severe) < or equal to 50% Estimated Energy Requirement > or equal to 5 days Interpretation of Weight Loss (severe) >2% in 1 week #1 Nutrition Diagnosis Malnutrition Etiology acute illness As Evidenced by Signs and Symptoms <50% of EER in > or = to 5 days, 4% wt loss in one week Is patient on ventilator? No Is Patient Ambulatory and/or Out of Bed Yes REE-([place]-ambulatory/OOB) [ [id number] [id number]] Calculation Used for Recommendations [facility] Additional Notes Protein: (1.2-1.5 g/kg) 98- 122g Fluid: 1 ml/kcal Nutrition Intervention Change Diet Order: GI soft Goal #1 Meet at least 75% of protein and energy needs via PO intakes Anticipated Discharge Needs: Regular Follow-Up By: 08/23/20 Additional Comments FU for intakes
[2020-08-21] MEDS: FAMOTIDINE 20 MG TAB PO SCH ×2 (09:30→22:07)
[2020-08-21 11:58] LABS: INR 1.05 (0.87-1.13)
[2020-08-21] MEDS ORDERED: oxyCODONE /ACETAMINOPHEN 5-325MG TAB PO PRN (13:40)
[2020-08-21] MEDS: HEPARIN/ 0.45% NACL DRIP 25,000 UNIT/500 ML BAG IV SCH (16:50)
[2020-08-21] MEDS ORDERED: WARFARIN 5 MG TAB PO SCH (17:00)
[2020-08-21] MEDS: MORPHINE 2 MG/1 ML INJ IV PRN ×2 (17:58→22:10)
[2020-08-22 08:30] LABS: INR 1.03 (0.87-1.13)
[2020-08-22] MEDS: FAMOTIDINE 20 MG TAB PO SCH ×3 (08:31→21:47)
[2020-08-22] MEDS: MORPHINE 2 MG/1 ML INJ IV PRN (08:34)
--- NOTE | 2020-08-22 11:09 | Electrocardiograph Report ---
[facility] Test Date: 2020-08-19 Test Time: 13:03:47 Pat Name: LINDA DIMAS Department: Room: A354 2 Gender: M Cell Pourer: : 1975 Requested By: SAMSON PANDA Order Number: [id number] Reading MD: Orlando Gotti Measurements Intervals [place] Rate: 106 P: 78 MD: 147 QRS: 90 QRSD: 80 T: 5 QT: 346 QTc: 461 Interpretive Statements Sinus tachycardia Left atrial enlargement No previous ECG available for comparison Electronically Signed On 08-22-2020 11:09:36 EDT by Orlando Gotti
--- NOTE | 2020-08-22 11:21 | Progress Note ---
Assessment and Plan Assessment and plan: 44-year-old -[place] male presents to the emergency room today complaining of chest pain and sore throat. Patient has also had nausea and vomiting overnight. He indicates that he tested positive for COVID-19 on August 11, 2020 during which she had occasional chills and diarrhea. Chills and diar moise since resolved. He was seen at [facility] on August 15, 2020 with same complaints and given some medications. He has not noticed any significant improvement. He has been having progressive shortness of breath. Work-up in the emergency room today reveals bilateral infiltrate on chest x-ray. CT angiogram of the chest reveals moderate left lower lobe pulmonary embolus and bilateral pneumonia typical of COVID-19 infection. Patient has been started on empiric IV antibiotics and also placed on heparin drip. Patient currently admitted with COVID-19 pneumonia and pulmonary embolism. COVID-19 infection -Patient was evaluated by ID and recommend no remdesivir or Decadron because p atient does not need oxygen. Disposition; patient can be discharged once INR is therapeutic or DAOC is arranged as an O/P treatment by CM. Discussed with case management patient states that he has insurance Medicaid and see if they will pay for Eliquis and if they will will proceed with discharging the patient. Left lower lobe pulmonary embolism -Patient is on heparin -Patient is uninsured and I added a medicine pharmacy to dose -Monitor INR Sore throat likely secondary to GERD -We will obtain GI evaluation. -Continue H2 yinka. Leukocytosis secondary to COVID-19 no evidence of sepsis Hypotensive -Although asymptomatic patient also noted with bradycardia. Will obtain an echocardiogram while in house to rule out any other pathology. Plan of care discussed with the patient in detail imaging studies reviewed. History Interval history: Patient seen and examined complains of odynophagia otherwise no fever no shortness of breath no nausea vomiting but reports that the pain with swallowing is horrible. Described as 7/10 in intensity Hospitalist Physical - Physical exam Narrative exam: VITAL SIGNS: Reviewed. GENERAL: The patient appears normally developed, Vital signs as documented. HEAD: No signs of head trauma. EYES: Pupils are equal. Extraocular motions intact. EARS: Hearing grossly intact. MOUTH: Oropharynx is normal. NECK: No adenopathy, no JVD. CHEST: Chest with clear breath sounds bilaterally. No wheezes, rales, or rhonchi. CARDIAC: Regular rate and rhythm. S1 and S2, without murmurs, gallops, or rubs. VASCULAR: No Edema. Peripheral pulses normal and equal in all extremities. ABDOMEN: Soft, non tender and non distended. No rebound or guarding, and no masses palpated. Bowel Sounds normal. MUSCULOSKELETAL: Good range of motion of all major joints. Extremities without clubbing, cyanosis or edema. NEUROLOGIC EXAM: Alert and oriented x 3 No focal sensory or strength deficits. Speech normal. Follows commands. PSYCHIATRIC: Mood normal. SKIN: detail exam as documented in skin assessment - Constitutional Vitals: Temp Pulse Resp BP Pulse Ox 98.1 F 48 L 18 97/54 96 08/22/20 06:22 08/22/20 06:22 08/22/20 06:22 08/22/20 06:22 08/22/20 09:00 General appearance: Present: no acute distress, well-nourished HEART Score - HEART Score Troponin: Troponin T < 0.010 ng/mL (0.00-0.029) 08/19/20 12:56 Results - Labs CBC & Chem 7: 08/21/20 06:53 08/21/20 06:53 Labs: Laboratory Last Values WBC 15.7 K/mm3 (4.5-11.0) H 08/21/20 06:53 RBC 4.69 M/mm3 (3.65-5.03) 08/21/20 06:53 Hgb 14.3 gm/dl (11.8-15.2) 08/21/20 06:53 Hct 42.9 % (35.5-45.6) 08/21/20 06:53 MCV 92 fl (84-94) 08/21/20 06:53 MCH 30 pg (28-32) 08/21/20 06:53 MCHC 33 % (32-34) 08/21/20 06:53 RDW 13.7 % (13.2-15.2) 08/21/20 06:53 Plt Count 380 K/mm3 (140-440) 08/21/20 06:53 Lymph % (Auto) 17.7 % (13.4-35.0) 08/21/20 06:53 [place] % (Auto) 8.8 % (0.0-7.3) H 08/21/20 06:53 Eos % (Auto) 0.2 % (0.0-4.3) 08/21/20 06:53 Baso % (Auto) 0.9 % (0.0-1.8) 08/21/20 06:53 Lymph # (Auto) 2.8 K/mm3 (1.2-5.4) 08/21/20 06:53 [place] # (Auto) 1.4 K/mm3 (0.0-0.8) H 08/21/20 06:53 Eos # (Auto) 0.0 K/mm3 (0.0-0.4) 08/21/20 06:53 Baso # (Auto) 0.1 K/mm3 (0.0-0.1) 08/21/20 06:53 Add Manual Diff Complete 08/19/20 12:52 Total Counted 100 08/19/20 12:52 Seg Neutrophils % 72.4 % (40.0-70.0) H 08/21/20 06:53 Seg Neuts % (Manual) 87.0 % (40.0-70.0) H 08/19/20 12:52 Band Neutrophils % 1.0 % 08/19/20 12:52 Lymphocytes % (Manual) 5.0 % (13.4-35.0) L 08/19/20 12:52 Monocytes % (Manual) 7.0 % (0.0-7.3) 08/19/20 12:52 Nucleated RBC % Not Reportable 08/19/20 12:52 Seg Neutrophils # 11.4 K/mm3 (1.8-7.7) H 08/21/20 06:53 Seg Neutrophils # Man 9.3 K/mm3 (1.8-7.7) H 08/19/20 12:52 Band Neutrophils # 0.1 K/mm3 08/19/20 12:52 Lymphocytes # (Manual) 0.5 K/mm3 (1.2-5.4) L 08/19/20 12:52 Abs React Lymphs (Man) 0.0 K/mm3 08/19/20 12:52 Monocytes # (Manual) 0.7 K/mm3 (0.0-0.8) 08/19/20 12:52 Eosinophils # (Manual) 0.0 K/mm3 (0.0-0.4) 08/19/20 12:52 Basophils # (Manual) 0.0 K/mm3 (0.0-0.1) 08/19/20 12:52 Metamyelocytes # 0.0 K/mm3 08/19/20 12:52 Myelocytes # 0.0 K/mm3 08/19/20 12:52 Promyelocytes # 0.0 K/mm3 08/19/20 12:52 Blast Cells # 0.0 K/mm3 08/19/20 12:52 WBC Morphology Not Reportable 08/19/20 12:52 Hypersegmented Neuts Not Reportable 08/19/20 12:52 Hyposegmented Neuts Not Reportable 08/19/20 12:52 Hypogranular Neuts Not Reportable 08/19/20 12:52 Smudge Cells Not Reportable 08/19/20 12:52 Toxic Granulation Not Reportable 08/19/20 12:52 Toxic Vacuolation Not Reportable 08/19/20 12:52 Dohle Bodies Not Reportable 08/19/20 12:52 Pelger-Huet Anomaly Not Reportable 08/19/20 12:52 Kiera Rods Not Reportable 08/19/20 12:52 Platelet Estimate Consistent w auto 08/19/20 12:52 Clumped Platelets Not Reportable 08/19/20 12:52 Plt Clumps, EDTA Not Reportable 08/19/20 12:52 Large Platelets Few 08/19/20 12:52 Giant Platelets Not Reportable 08/19/20 12:52 Platelet Satelliting Not Reportable 08/19/20 12:52 Plt Morphology Comment Not Reportable 08/19/20 12:52 RBC Morphology Normal 08/19/20 12:52 Dimorphic RBCs Not Reportable 08/19/20 12:52 Polychromasia Not Reportable 08/19/20 12:52 Hypochromasia Not Reportable 08/19/20 12:52 Poikilocytosis Not Reportable 08/19/20 12:52 Anisocytosis Not Reportable 08/19/20 12:52 Microcytosis Not Reportable 08/19/20 12:52 Macrocytosis Not Reportable 08/19/20 12:52 Spherocytes Not Reportable 08/19/20 12:52 Pappenheimer Bodies Not Reportable 08/19/20 12:52 Sickle Cells Not Reportable 08/19/20 12:52 Target Cells Not Reportable 08/19/20 12:52 Tear Drop Cells Not Reportable 08/19/20 12:52 Ovalocytes Not Reportable 08/19/20 12:52 Helmet Cells Not Reportable 08/19/20 12:52 [place]all[place] Bodies Not Reportable 08/19/20 12:52 Hardy Rings Not Reportable 08/19/20 12:52 [place] Cells Not Reportable 08/19/20 12:52 Bite Cells Not Reportable 08/19/20 12:52 Crenated Cell Not Reportable 08/19/20 12:52 Elliptocytes Not Reportable 08/19/20 12:52 Acanthocytes (Spur) Not Reportable 08/19/20 12:52 Rouleaux Not Reportable 08/19/20 12:52 Hemoglobin C Crystals Not Reportable 08/19/20 12:52 Schistocytes Not Reportable 08/19/20 12:52 Malaria parasites Not Reportable 08/19/20 12:52 Kareem Bodies Not Reportable 08/19/20 12:52 Hem Pathologist Commnt No 08/19/20 12:52 PT 13.3 Sec. (12.2-14.9) 08/22/20 06:28 INR 1.03 (0.87-1.13) 08/22/20 06:28 APTT 25.5 Sec. (24.2-36.6) 08/20/20 00:10 D-Dimer 1186.85 ng/mlDDU (0-234) H 08/20/20 00:10 Heparin Anti-Xa Level 0.66 U.I./ml (0.3-0.7) 08/21/20 10:16 Sodium 136 mmol/L (137-145) L 08/21/20 06:53 Potassium 3.9 mmol/L (3.6-5.0) 08/21/20 06:53 Chloride 101.7 mmol/L (98-107) 08/21/20 06:53 Carbon Dioxide 25 mmol/L (22-30) 08/21/20 06:53 Anion Gap 13 mmol/L 08/21/20 06:53 BUN 16 mg/dL (9-20) 08/21/20 06:53 Creatinine 0.9 mg/dL (0.8-1.3) 08/21/20 06:53 Estimated GFR > 60 ml/min 08/21/20 06:53 BUN/Creatinine Ratio 18 % 08/21/20 06:53 Glucose 93 mg/dL (75-100) 08/21/20 06:53 Calcium 8.5 mg/dL (8.4-10.2) 08/21/20 06:53 Ferritin 1656.0 ng/mL (30.0-300.0) H 08/20/20 00:10 Total Bilirubin 0.60 mg/dL (0.1-1.2) 08/19/20 12:52 AST 21 units/L (5-40) 08/19/20 12:52 ALT 24 units/L (7-56) 08/19/20 12:52 Alkaline Phosphatase 52 units/L (35-129) 08/19/20 12:52 Lactate Dehydrogenase 345 units/L (91-180) H 08/20/20 00:10 Troponin T < 0.010 ng/mL (0.00-0.029) 08/19/20 12:56 C-Reactive Protein 3.90 mg/dL (0.00-1.30) H 08/20/20 00:10 Total Protein 7.7 g/dL (6.3-8.2) 08/19/20 12:52 Albumin 3.1 g/dL (3.9-5) L 08/19/20 12:52 Albumin/Globulin Ratio 0.7 % 08/19/20 12:52 Lipase 52 units/L (13-60) 08/19/20 12:52 Procalcitonin 0.06 ng/mL (<0.15) 08/20/20 00:10 Urine Opiates Screen Negative 08/19/20 Unknown Urine Methadone Screen Negative 08/19/20 Unknown Ur Barbiturates Screen Negative 08/19/20 Unknown Ur Phencyclidine Scrn Negative 08/19/20 Unknown Ur Amphetamines Screen Negative 08/19/20 Unknown U Benzodiazepines Scrn Negative 08/19/20 Unknown Urine Cocaine Screen Negative 08/19/20 Unknown U Marijuana (THC) Screen Negative 08/19/20 Unknown Drugs of Abuse Note Disclamer 08/19/20 Unknown Coronavirus (PCR) Positive (Negative) A 08/20/20 Unknown Microbiology: Microbiology 08/20/20 00:40 Peripheral/Venous Blood Culture - Preliminary NO GROWTH AFTER 48 HOURS 08/20/20 00:10 Peripheral/Venous Blood Culture - Preliminary NO GROWTH AFTER 48 HOURS Nicolas/IV: Voiding Method Toilet Active Medications - Current Medications Current Medications: Generic Name Dose Route Start Last Admin Trade Name Freq PRN Reason Stop Dose Admin Acetaminophen 650 mg 08/20/20 00:27 Acetaminophen 325 Mg Tab PO Q4H PRN Pain MILD(1-3)/Fever >100.5/MAGANA Famotidine 20 mg 08/20/20 10:00 08/22/20 08:31 Famotidine 20 Mg Tab PO 20 mg BID GLENN Administration Heparin Sodium (Porcine) 3,300 unit 08/19/20 23:36 Heparin 10,000 Units/10 Ml Vial 40 unit/kg (3300 unit) IV Q6H PRN Anti-Xa Assay < 0.1 units/ml Heparin Sodium/Sodium Chloride 25,000 unit in 500 mls @ 24 mls/hr 08/20/20 01:00 08/21/20 16:50 Heparin/ 0.45% Nacl-25,000 Unit/500 Ml IV 1,200 units/hr TITR GLENN 24 mls/hr Administration Protocol 1,200 UNITS/HR Magnesium Hydroxide 30 ml 08/20/20 00:27 Magnesium Hydroxide (Mom) Oral Liqd Udc PO Q4H PRN Constipation Morphine Sulfate 2 mg 08/20/20 00:27 08/22/20 08:34 Morphine 2 Mg/1 Ml Inj IV 2 mg Q4H PRN Administration Pain, Moderate (4-6) Ondansetron HCl 4 mg 08/20/20 00:27 08/21/20 22:11 Ondansetron 4 Mg/2 Ml Inj IV 4 mg Q8H PRN Administration Nausea And Vomiting Oxycodone/Acetaminophen 1 tab 08/21/20 13:40 08/21/20 14:33 Oxycodone /Acetaminophen 5-325mg Tab PO 1 tab Q6H PRN Administration Pain, Moderate (4-6) Sodium Chloride 10 ml 08/20/20 10:00 08/21/20 22:06 Sodium Chloride 0.9% 10 Ml Flush Syringe IV 10 ml BID GLENN Administration Sodium Chloride 10 ml 08/20/20 00:27 08/20/20 03:01 Sodium Chloride 0.9% 10 Ml Flush Syringe IV 10 ml PRN PRN Administration LINE FLUSH Warfarin Sodium 7.5 mg 08/22/20 17:00 Warfarin 7.5 Mg Tab PO DAILY@1700 [facility] Nutrition/Malnutrition Assess - Dietary Evaluation Nutrition/Malnutrition Findings: Nutrition Notes Start: 08/20/20 11:10 Freq: Status: Active Protocol: Document 08/22/20 08:55 MK (Rec: 08/22/20 09:00 MK [id number]) Nutrition Notes Need for Assessment generated from: Education Initial or Follow up Reassessment Other Pertinent Diagnosis pneu, COVID, pulmonary embolism Current Diet GI soft Labs/Tests Na 136 Pertinent Medications Coumadin Height 5 ft 6 in Weight 80.6 kg [place] Body Weight (kg) 64.54 BMI 28.6 Weight Status Overweight Subjective/Other Information Screen for DNI. Pt open and receptive to education. Pt continues to eat <25% of meals due to sore throat. Pt with no further food prefrences Percent of energy/protein needs met: Negligible Burn Absent Trauma Absent GI Symptoms Constipation Current % PO Negligible Minimum of two criteria Yes Energy Intake (severe) < or equal to 50% Estimated Energy Requirement > or equal to 5 days Interpretation of Weight Loss (severe) >2% in 1 week #2 Nutrition Diagnosis Inadequate energy intake Etiology COVID-19 As Evidenced by Signs and Symptoms pt eating <25% of meals #1 Nutrition Diagnosis Malnutrition Diagnosis Progress(for reassessment Continues documentation) Is patient on ventilator? No Is Patient Ambulatory and/or Out of Bed Yes REE-([facility]-ambulatory/OOB) [ 2123.875 [id number]] Calculation Used for Recommendations [facility] Additional Notes Protein: (1.2-1.5 g/kg) 98- 122g Fluid: 1 ml/kcal Nutrition Intervention Change Diet Order: Continue Goal #1 Meet at least 75% of protein and energy needs via PO intakes Anticipated Discharge Needs: Regular Follow-Up By: 08/25/20 Additional Comments FU for intakes
[2020-08-22] MEDS ORDERED: HEPARIN/ 0.45% NACL DRIP 25,000 UNIT/500 ML BAG IV SCH (13:00)
--- NOTE | 2020-08-22 13:49 | Gastroenterology Consultation ---
History of Present Illness - Reason for Consult Consult date: 08/22/20 gerd Requesting physician: REDDY LAST - History of Present Illness This is a 44 yo male with recent diagnosis of COVID-19 on 08/11/2020 admitted for chest pain and dyspnea. CTA showed a pulmonary embolism and bilateral pneumonia and started on anticoagulation. Currently on heparin drip. Patient complained of pain with swallowing and reflux. GI consulted for reflux. Patient reports having diarrhea initially with COVID but it resolved. No BM over 1 day now. No blood in the stools or melena reports. He started having throat pain since COVID diagnosis but now feels like symptoms are improving. Able to eat without any trouble. No nausea/vomiting. No previous symptoms of GERD. Medication list reviewed. Past History Past Medical History: No medical history, pulmonary embolism Past Surgical History: No surgical history Social history: no significant social history, lives with family Family history: no significant family history Medications and Allergies Allergies Allergy/AdvReac Type Severity Reaction Status Date / Time No Known Allergies Allergy Verified 07/19/13 05:43 Home Medications Medication Instructions Recorded Confirmed Last Taken Type Ciprofloxacin HCl [Cipro] 500 mg PO Q12H #28 tab 07/22/13 08/21/20 Unknown Rx metroNIDAZOLE [Flagyl] 500 mg PO Q8HR #42 tablet 07/22/13 08/21/20 Unknown Rx oxyCODONE /ACETAMINOPHEN [Percocet 1 tab PO Q6H PRN #15 tablet 08/19/16 08/21/20 Unknown Rx 5/325 mg] Albuterol Sulfate [Proventil Hfa] 6.7 gm IH QID PRN #1 hfa.aer.ad 08/19/20 Unknown Rx Azithromycin 500 mg PO QDAY #5 tablet 08/19/20 Unknown Rx Ibuprofen [Motrin 600 MG tab] 600 mg PO Q8H PRN #20 tablet 08/19/20 Unknown Rx Prednisone [predniSONE 5 mg (6-Day 5 mg PO .TAPER #1 tab.ds.pk 08/19/20 Unknown Rx Pack, 21 Tabs)] Active Meds: Active Medications Acetaminophen (Acetaminophen 325 Mg Tab) 650 mg PO Q4H PRN PRN Reason: Pain MILD(1-3)/Fever >100.5/MAGANA Docusate Sodium (Docusate Sodium 100 Mg Cap) 100 mg PO BID GLENN Famotidine (Famotidine 20 Mg Tab) 20 mg PO BID [facility] Last Admin: 08/22/20 08:31 Dose: 20 mg Documented by: Heparin Sodium (Porcine) (Heparin 10,000 Units/10 Ml Vial) 3,300 unit 40 unit/kg (3300 unit) IV Q6H PRN PRN Reason: Anti-Xa Assay < 0.1 units/ml Heparin Sodium/Sodium Chloride (Heparin/ 0.45% Nacl-25,000 Unit/500 Ml) 25,000 unit in 500 mls @ 24 mls/hr IV TITR [facility]; Protocol Magnesium Hydroxide (Magnesium Hydroxide (Mom) Oral Liqd Udc) 30 ml PO Q4H PRN PRN Reason: Constipation Morphine Sulfate (Morphine 2 Mg/1 Ml Inj) 2 mg IV Q4H PRN PRN Reason: Pain, Moderate (4-6) Last Admin: 08/22/20 08:34 Dose: 2 mg Documented by: Ondansetron HCl (Ondansetron 4 Mg/2 Ml Inj) 4 mg IV Q8H PRN PRN Reason: Nausea And Vomiting Last Admin: 08/21/20 22:11 Dose: 4 mg Documented by: Oxycodone/Acetaminophen (Oxycodone /Acetaminophen 5-325mg Tab) 1 tab PO Q6H PRN PRN Reason: Pain, Moderate (4-6) Last Admin: 08/21/20 14:33 Dose: 1 tab Documented by: Sodium Chloride (Sodium Chloride 0.9% 10 Ml Flush Syringe) 10 ml IV BID [facility] Last Admin: 08/21/20 22:06 Dose: 10 ml Documented by: Sodium Chloride (Sodium Chloride 0.9% 10 Ml Flush Syringe) 10 ml IV PRN PRN PRN Reason: LINE FLUSH Last Admin: 08/20/20 03:01 Dose: 10 ml Documented by: Warfarin Sodium (Warfarin 7.5 Mg Tab) 7.5 mg PO DAILY@1700 [facility] Review of Systems - Review of Systems All systems: negative Constitutional: fever, chills Ears, Nose, Throat: hoarseness, painful swallowing Cardiovascular: chest pain Respiratory: cough, shortness of breath Gastrointestinal: diarrhea, change in bowel habits, no abdominal pain, no vomiting Neurological: weakness Psychiatric: no anxiety Endocrine: no cold intolerance Hematologic/Lymphatic: no easy bruising Allergic/Immunologic: no wheezing Exam - Constitutional Vital Signs: Temp Pulse Resp BP Pulse Ox 98.1 F 48 L 18 97/54 96 08/22/20 06:22 08/22/20 06:22 08/22/20 06:22 08/22/20 06:22 08/22/20 09:00 General appearance: no acute distress - EENT Eyes: EOM intact ENT: hearing intact - Respiratory Respiratory effort: normal - Cardiovascular Rhythm: regular Heart Sounds: Present: S1 & S2 - Gastrointestinal General gastrointestinal: Present: soft, non-tender, non-distended - Integumentary Integumentary: Present: clear, warm - Neurologic Neurological: alert and oriented x3 - Labs CBC & Chem 7: 08/21/20 06:53 08/21/20 06:53 Lab Results: Laboratory Results - last 24 hr 08/22/20 08/22/20 06:28 10:29 PT 13.3 INR 1.03 Heparin Anti-Xa Level 0.69 Assessment and Plan This is a 44 yo male with recent diagnosis of COVID-19 on 08/11/2020 admitted for chest pain and dyspnea. CTA showed a pulmonary embolism and bilateral pneumonia and started on anticoagulation. Currently on heparin drip. Patient complained of pain with swallowing and reflux. GI consulted for reflux. # Odynophagia/GERD - symptoms improving. - may be related to pharyngitis in the setting of COVID pneumonia. - given new PE diagnosis and COVID pneumonia, recommend conservative management - PPI po daily - follow up in outpatient GI clinic for further evaluation if persistent symptoms. - while inpatient, if persistent odynophagia, recommend barium swallow study. Today, he reports symptoms better and he is tolerating a diet. - will sign off. please call with questions.
[2020-08-22] MEDS: DOCUSATE SODIUM 100 MG CAP PO SCH ×2 (14:11→21:45)
--- NOTE | 2020-08-22 14:38 | Progress Note ---
Assessment and Plan Cultures: SARS CoV2 PCR: Positive and positive as outpatient 08/20/2020 blood culture: No growth today A/P: 44-year-old male with COVID-19: #COVID-19 pneumonia: CRP 3.9, procalcitonin 0.06, ferritin 1656. Remains on room air. #Acute pulmonary embolism: Likely secondary to above #Odynophagia: Likely secondary to GERD, evaluated by GI #Bradycardia: Asymptomatic Recs: -No indication for remdesivir or steroids, patient remains on room air -Procalcitonin is low, antibiotics discontinued -Continue anticoagulation per primary team for pulmonary embolism -Check 6-minute walking test if normal okay to discharge will follow Génesis Campoverde MD [facility] ([facility]) Office [phone] Subjective Date of service: 08/22/20 Principal diagnosis: COVID Interval history: Patient feels okay. Denies any complaints except for reflux. Reports some pain upon swallowing. Objective - Exam Narrative Exam: General appearance: Alert in NAD pleasant Eyes: anicteric sclerae, moist conjunctivae; no lid-lag; PERRLA HENT: Normocephalic, Atraumatic; normal external ears, nares open, oropharynx clear with moist mucous membranes and no oral thrush Neck: supple, tracheal midline, no JVD Lungs: Bilateral scattered crackles CV: RRR no murmur Abdomen: Soft, non-tender; no masses or hepatosplenomegaly Extremities: no edema, no cyanosis Skin: No rash. Psych: no agitated Neuro: alert and oriented x 3. Moving all extermities - Constitutional Vitals: Vital Signs Temp Pulse Resp BP Pulse Ox 98.1 F 48 L 18 97/54 96 08/22/20 06:22 08/22/20 06:22 08/22/20 06:22 08/22/20 06:22 08/22/20 09:00 Temperature -Last 24 Hours Temperature 98.1 F Temperature 98.2 F Temperature 97.9 F - Labs CBC & Chem 7: 08/21/20 06:53 08/21/20 06:53
[2020-08-22] MEDS: PANTOPRAZOLE 40 MG TAB PO SCH (16:55)
[2020-08-22] MEDS ORDERED: WARFARIN 7.5 MG TAB PO SCH (17:00)
[2020-08-22] MEDS ORDERED: TEMAZEPAM 15 MG CAP PO PRN (20:46)
[2020-08-23 05:48] VITALS: BP 93/60
[2020-08-23 07:57] LABS: Hematocrit 44.6 % (35.5-45.6); Hemoglobin 14.9 gm/dl (11.8-15.2)
[2020-08-23 07:58] LABS: INR 1.27 (0.87-1.13)
[2020-08-23] MEDS: FAMOTIDINE 20 MG TAB PO SCH (09:11)
[2020-08-23] MEDS: DOCUSATE SODIUM 100 MG CAP PO SCH (09:11)
[2020-08-23] MEDS: PANTOPRAZOLE 40 MG TAB PO SCH (09:11)
--- NOTE | 2020-08-23 10:36 | Discharge Summary ---
Providers - Providers Date of Admission: 08/20/20 00:13 Attending physician: REDDY LAST MD 08/20/20 00:27 Consult to Physician [CONS] Routine Comment: Consulting Provider: HARSHAL PERKINS Physician Instructions: Reason For Exam: Pneumonia R/O Covid-19 08/21/20 08:51 Consult to Case Management [CONS] Routine Services Needed at Discharge: Tin Flopper Notified:: cm notified Additional Physician Instructions: Patient need Eliquis or Xarelto at d ischarge. Patient is uninsured 08/22/20 11:13 Consult to Physician [CONS] Routine Comment: Consulting Provider: BEVERLEY WATKINS Physician Instructions: Reason For Exam: severe GERD Primary care physician: ELECT[employer]IC [employer]ER TESTER [employer] Hospitalization Reason for admission: shortness of breath Condition: Stable Hospital course: 44-year-old -[place] male presents to the emergency room today complaining of chest pain and sore throat. Patient has also had nausea and vomiting overnight. He indicates that he tested positive for COVID-19 on August 11, 2020 during which she had occasional chills and diarrhea. Chills and diarrhea since resolved. He was seen at [facility] on August 15, 2020 with same complaints and given some medications. He has not noticed any significant improvement. He has been having progressive shortness of breath. Work-up in the emergency room today reveals bilateral infiltrate on chest x-ray. CT angiogram of the chest reveals moderate left lower lobe pulmonary embolus and bilateral pneumonia typical of COVID-19 infection. Patient has been started on empiric IV antibiotics and also placed on heparin drip. Patient currently admitted with COVID-19 pneumonia and pulmonary embolism. 08/23: Patient this a.m. is clinically stable for discharge. His understanding is somehow suspect but following multiple explanation and documentation on paper patient was able to understand that he does have pulmonary embolism and bilateral pneumonia typical of COVID-19. He does understand that he is to be on anticoagulation for at least 3 to 6 months. He was resting comfortably without oxygen at home oxygen evaluation is being done. He did report during hospitalization that he had pain with swallowing she was evaluated by GI who reported improvement in his symptoms does feel that this could be related to pharyngitis in the setting of COVID-19 pneumonia although GERD was definitely the differential. The patient will follow with GI outpatient. Trimming Machine Set Up Operator also saw the patient no recommendation for remdesivir or Decadron as patient was not requiring oxygen. Again this morning he is doing well he reports that he has Medicaid insurance and [facility] discharge and discount card has been provided for the patient with instructions of discharge plan. COVID-19 infection Acute left lower lobe pulmonary embolism Odynophagia GERD Pharyngitis secondary to COVID-19 Leukocytosis secondary to COVID-19 no evidence of sepsis Hypotensive Asymptomatic bradycardia Disposition: TO HOME OR SELFCARE Final Discharge Diagnosis (Prints w/discharge instructions): Pulmonary embolism Time spent for discharge: 35 mins Core Measure Documentation - Palliative Care Palliative Care/ Comfort Measures: Not Applicable - Core Measures Any of the following diagnoses?: DVT/PE - VTE Discharge Requirements Deep Vein Thrombosis/Pulmonary Embolism Present on Admission: Yes Has pt received <5 days of overlap therapy or INR<2.0: Yes (criteria for overlap therapy at discharge: on overlap therapy for less than 5 days or INR<2.0) Anticoagulant overlap therapy prescribed at discharge: Yes Exam - Physical Exam Narrative exam: VITAL SIGNS: Reviewed. GENERAL: The patient appears normally developed, Vital signs as documented. HEAD: No signs of head trauma. EYES: Pupils are equal. Extraocular motions intact. EARS: Hearing grossly intact. MOUTH: Oropharynx is normal. NECK: No adenopathy, no JVD. CHEST: Chest with clear breath sounds bilaterally. No wheezes, rales, or rhonchi. CARDIAC: Regular rate and rhythm. S1 and S2, without murmurs, gallops, or rubs. VASCULAR: No Edema. Peripheral pulses normal and equal in all extremities. ABDOMEN: Soft, non tender and non distended. No rebound or guarding, and no masses palpated. Bowel Sounds normal. MUSCULOSKELETAL: Good range of motion of all major joints. Extremities without clubbing, cyanosis or edema. NEUROLOGIC EXAM: Alert and oriented x 3 No focal sensory or strength deficits. Speech normal. Follows commands. PSYCHIATRIC: Mood normal. SKIN: detail exam as documented in skin assessment - Constitutional Vitals: Temp Pulse Resp BP Pulse Ox 97.4 F L 57 L 18 93/60 96 08/23/20 04:00 08/23/20 04:00 08/23/20 04:00 08/23/20 04:00 08/23/20 07:14 Plan Activity: advance as tolerated, fall precautions Diet: regular Special Instructions: record daily weights, record daily BP diary, other (Monitor oxygen level at home return to hospital if less than 92%) Additional Instructions: Continue COVID-19 precautions. Take medications as pr escribed. Follow up with: PRIMARY CAREMD [Primary Care Provider] - 7 Days ELGIN NIETO MD [Staff Physician] - 7 Days Forms: Warfarin Discharge Instruction Prescriptions: Azithromycin 500 mg PO QDAY #5 tablet Docusate Sodium [Colace CAP] 100 mg PO DAILY #30 capsule Apixaban [Eliquis] 10 mg PO Q12HR #12 tablet Apixaban [Eliquis] 5 mg PO Q12HR #60 tablet Ibuprofen [Motrin 600 MG tab] 600 mg PO Q8H PRN #20 tablet PRN Reason: Pain Famotidine [Pepcid] 20 mg PO BID #60 tablet Albuterol Sulfate [Proventil Hfa] 6.7 gm IH QID PRN #1 [id number] PRN Reason: Shortness Of Breath Ascorbic Acid [Vitamin C] 1,000 mg PO DAILY #30 tablet Cholecalciferol (Vitamin D3) [Vitamin D3] 5,000 unit PO DAILY #30 tablet
[2020-08-23] MEDS ORDERED: APIXABAN 5 MG TAB PO SCH (12:00)
[2020-08-23 14:52] LABS: Hematocrit 45.7 % (35.5-45.6); Hemoglobin 15.5 gm/dl (11.8-15.2); Mean Corpuscular HGB Conc 34 % (32-34); Mean Corpuscular Volume 92 fl (84-94); Platelet Count 389 K/mm3 (140-440); Red Blood Count 4.97 M/mm3 (3.65-5.03); Red Cell Distribution Width 13.6 % (13.2-15.2)
[2020-08-23 15:01] LABS: INR 1.4 (0.87-1.13)
[2020-08-23 15:02] LABS: Partial Thromboplastin Time 32.8 Sec. (24.2-36.6)
[2020-08-30] MEDS ORDERED: APIXABAN 5 MG TAB PO SCH (10:00)
== END 2020-08-23 16:00 | disposition home or self-care (01) | DRG 177 ==
LOC: ED 10:33 → 3A 08-20 00:13
PROVIDERS: ADMIT Internal Medicine Geriatric Medicine; ATTEND Internal Medicine
DX: U07.1 COVID-19 (principal); J12.82 Pneumonia due to coronavirus disease 2019; I26.99 Other pulmonary embolism without acute cor pulmonale; I95.9 Hypotension, unspecified; D72.829 Elevated white blood cell count, unspecified; R13.10 Dysphagia, unspecified; K21.9 Gastro-esophageal reflux disease without esophagitis; J02.9 Acute pharyngitis, unspecified; R00.1 Bradycardia, unspecified
CPT/HCPCS: 36415; 71046; 71275; 80048; 80053; 80307; 82565; 82728; 82947; 83615; 83690; 84145; 84484; 85007; 85014; 85018; 85025; 85027; 85049; 85379; 85520; 85610; 85730; 86140; 87040; 93005; 93306; 96365; G0378; J0456; J0696; J1100; J1170; J1644; J1885; J2270; J2405; J7030; Q9967; U0003